=== PATIENT | female | born 1950 | race American Indian/Alaskan Native ===

== ENCOUNTER 2021-07-16 20:41 | Inpatient (IN) | payer OTHER, BC ==
[2021-07-16] MEDS ORDERED: ALBUTEROL SO4 2.5/IPRATROPIUM 0.5 INH SOL 3 ML VIAL.NEB. NEB ONE ×2 (21:22→21:32)
[2021-07-16] MEDS ORDERED: predniSONE 5 MG/5 ML ORAL SOLN- UNIT-DOSE CUP PO ONE (21:23)
[2021-07-16] MEDS ORDERED: predniSONE 10 MG TABLET (UD) ONE (21:32)
[2021-07-16] MEDS ORDERED: AZITHROMYCIN IVPB 500 MG in DEXTROSE 5%-WATER - 250 ML IVPB ONE (21:47)
[2021-07-16] MEDS ORDERED: CEFTRIAXONE 1 GM in DEXTROSE 5%-WATER - 50 ML IVPB ONE (21:47)
[2021-07-16] MEDS ORDERED: AZITHROMYCIN IVPB 500 MG/250 ML BAG IVPB ONE (21:57)
[2021-07-16] MEDS ORDERED: CEFTRIAXONE 1 GM/50 ML BAG ONE (21:57)
[2021-07-16 22:30] LABS: BASO % 0.2 % (0-2.0); EOS % 0.1 % (0-4.5); HEMATOCRIT 39.6 % (32.4-45.2); HEMOGLOBIN 13.5 GM/dL (10.7-15.3); LYMPH % 14.5 % (8-40); MCH 30.3 pg (25.7-33.7); MCHC 34.1 g/dl (32.0-36.0); MEAN CELL VOLUME 88.9 fl (80-96); MEAN PLT VOLUME 8.5 fl (7.5-11.1); MONO % 1.2 % (3.8-10.2); PLATELET COUNT 238 10^3/uL (134-434); RBC 4.45 M/mm3 (3.60-5.2); RDW 13.4 % (11.6-15.6); WHITE BLOOD COUNT 7.2 K/mm3 (4.0-10.0)
[2021-07-16 22:49] LABS: CHLORIDE 103 mmol/L (98-107); SODIUM 137 mmol/L (136-145)
[2021-07-16 22:51] LABS: ALBUMIN 3.7 g/dl (3.4-5.0); ANION GAP 8 MMOL/L (8-16); CALCIUM 8.9 mg/dL (8.5-10.1); CO2 27 mmol/L (21-32)
[2021-07-16 22:52] LABS: BLOOD UREA NITROGEN 15.1 mg/dL (7-18); GLUCOSE,RANDOM 271 mg/dL (74-106)
[2021-07-16 22:54] LABS: SGPT/ALT 18 U/L (13-61)
[2021-07-16 22:55] LABS: CREATININE 1.1 mg/dL (0.55-1.3); SGOT/AST 12 U/L (15-37)
[2021-07-16 22:56] LABS: BILIRUBIN,TOTAL 0.4 mg/dL (0.2-1); TOT PROT 8.5 g/dl (6.4-8.2)
[2021-07-16 22:57] LABS: ALK PHOS 68 U/L (45-117)
[2021-07-17] MEDS ORDERED: ALBUTEROL SO4 HFA INHALER IH PRN (01:41)
[2021-07-17] MEDS: methylPREDNISolone NA SUCC 40 MG/1 ML VIAL IVPUSH SCH ×2 (03:02→10:15)
[2021-07-17 03:20] VITALS: BMI 19.6
[2021-07-17] MEDS: INSULIN SLIDING SCALE (NOVOLOG) 1 VIAL SQ SCH ×4 (06:58→22:12)
[2021-07-17] MEDS: ALBUTEROL SO4 2.5/IPRATROPIUM 0.5 INH SOL 3 ML VIAL.NEB. NEB SCH ×4 (07:30→20:05)
[2021-07-17 09:32] LABS: HEMATOCRIT 41.9 % (32.4-45.2); HEMOGLOBIN 14.1 GM/dL (10.7-15.3); MCHC 33.7 g/dl (32.0-36.0); MEAN PLT VOLUME 8.6 fl (7.5-11.1); PLATELET COUNT 272 10^3/uL (134-434); RDW 13.5 % (11.6-15.6); WHITE BLOOD COUNT 11.8 K/mm3 (4.0-10.0)
[2021-07-17 09:52] LABS: CHLORIDE 102 mmol/L (98-107); SODIUM 136 mmol/L (136-145)
[2021-07-17 09:59] LABS: ANION GAP 8 MMOL/L (8-16); BLOOD UREA NITROGEN 22.8 mg/dL (7-18); CALCIUM 9.7 mg/dL (8.5-10.1); CO2 26 mmol/L (21-32); MAGNESIUM 2.2 mg/dL (1.8-2.4)
[2021-07-17 10:00] LABS: GLUCOSE,RANDOM 224 mg/dL (74-106)
[2021-07-17] MEDS ORDERED: AZITHROMYCIN IVPB 500 MG in DEXTROSE 5%-WATER - 250 ML IVPB SCH (10:00)
[2021-07-17] MEDS ORDERED: AZITHROMYCIN IVPB 250 MG in DEXTROSE 5%-WATER - 250 ML IVPB SCH (10:00)
[2021-07-17 10:03] LABS: CREATININE 0.9 mg/dL (0.55-1.3); PHOSPHOROUS 3.4 mg/dL (2.5-4.9)
[2021-07-17] MEDS: ENOXAPARIN NA (PORCINE) 40 MG/0.4 ML DISP.SYRIN SQ SCH (10:14)
[2021-07-17] MEDS: ASPIRIN COATED 81 MG TABLET.EC PO SCH (10:15)
[2021-07-17] MEDS: LOSARTAN POTASSIUM 25 MG TABLET PO SCH (10:15)
[2021-07-17] MEDS: AZITHROMYCIN IVPB 500 MG/250 ML BAG IVPB SCH (10:16)
[2021-07-17] MEDS: predniSONE 20 MG TABLET (UD) PO SCH (15:13)
[2021-07-17] MEDS ORDERED: INSULIN (NOVOLOG) ASPART 100 UNITS/ML 10ML VIAL SQ SCH (16:30)
[2021-07-17] MEDS ORDERED: INSULIN (LEVEMIR) 100 UNITS/ML UNITS SQ SCH (22:00)
[2021-07-17] MEDS ORDERED: ATORVASTATIN CA 80 MG TABLET (FP) PO SCH (22:00)
[2021-07-17] MEDS ORDERED: MONTELUKAST NA 5 MG TAB.CHEW PO SCH (22:00)
[2021-07-18] MEDS: INSULIN SLIDING SCALE (NOVOLOG) 1 VIAL SQ SCH ×2 (06:17→12:05)
[2021-07-18] MEDS ORDERED: INSULIN (NOVOLOG) ASPART 100 UNITS/ML 10ML VIAL SQ SCH (07:00)
[2021-07-18] MEDS: ALBUTEROL SO4 2.5/IPRATROPIUM 0.5 INH SOL 3 ML VIAL.NEB. NEB SCH ×2 (07:15→11:54)
[2021-07-18 09:57] LABS: CALCIUM 9.5 mg/dL (8.5-10.1)
[2021-07-18 09:58] LABS: BLOOD UREA NITROGEN 27.9 mg/dL (7-18); MAGNESIUM 2.3 mg/dL (1.8-2.4)
[2021-07-18] MEDS ORDERED: PATIENT'S OWN MEDICATION (NON-FORMULARY) (Empagliflozin [Jardiance] 10 MG Tablet) PO SCH (10:00)
[2021-07-18 10:01] LABS: CREATININE 0.9 mg/dL (0.55-1.3)
[2021-07-18 10:10] LABS: BASO % 0.1 % (0-2.0); HEMOGLOBIN 14.5 GM/dL (10.7-15.3); LYMPH % 9.2 % (8-40); MCH 30.2 pg (25.7-33.7); MCHC 33.8 g/dl (32.0-36.0); MEAN CELL VOLUME 89.2 fl (80-96); MEAN PLT VOLUME 9.3 fl (7.5-11.1); MONO % 6.3 % (3.8-10.2); NEUT % 84.4 % (42.8-82.8); PLATELET COUNT 310 10^3/uL (134-434); RBC 4.82 M/mm3 (3.60-5.2); RDW 13.4 % (11.6-15.6); WHITE BLOOD COUNT 19.8 K/mm3 (4.0-10.0)
[2021-07-18] MEDS: LOSARTAN POTASSIUM 25 MG TABLET PO SCH (11:14)
[2021-07-18] MEDS: ASPIRIN COATED 81 MG TABLET.EC PO SCH (11:14)
[2021-07-18] MEDS: predniSONE 20 MG TABLET (UD) PO SCH (11:15)
[2021-07-18] MEDS: ENOXAPARIN NA (PORCINE) 40 MG/0.4 ML DISP.SYRIN SQ SCH (11:15)
[2021-07-18] MEDS: AZITHROMYCIN IVPB 500 MG/250 ML BAG IVPB SCH (11:15)
[2021-07-18 13:36] VITALS: BP 121/68; PULSE 84; TEMP 98.1
== END 2021-07-18 13:50 | disposition home or self-care (01) | DRG 203 ==
LOC: EDBD 20:41 → JER 20:41 → JERBED 23:28 → J5S 07-17 02:29
PROVIDERS: ADMIT Internal Medicine; ATTEND Internal Medicine
DX: J45.51 Severe persistent asthma with (acute) exacerbation (principal); E11.65 Type 2 diabetes mellitus with hyperglycemia; Z79.4 Long term (current) use of insulin; I10 Essential (primary) hypertension; E78.5 Hyperlipidemia, unspecified
CPT/HCPCS: 36415; 71046-TC-FY; 80048; 80053; 82550; 82962; 83735; 84100; 84484; 85025; 85027; 87040; 87804; 93005; 93010; 94761; 99285-25; C9803; U0003; U0005